=== PATIENT | male | born 1965 | race Caucasian/White ===

== ENCOUNTER 2023-06-04 06:17 | Day surgery (SDC) | payer OTHER, SELFPAY ==
[2023-06-04] VITALS (10 sets, daily range): BP systolic 99–140; BP diastolic 85–100; BMI 27.7
[2023-06-04] MEDS: CELEBREX 200 MG PO (08:40)
[2023-06-04] MEDS: TYLENOL 1000 MG PO (08:40)
[2023-06-04] MEDS: NORMOSOL-R 1000 IV (08:40)
== END 2023-06-04 12:00 | disposition home or self-care (01) ==
LOC: SDS 06:17
PROVIDERS: ATTENDING PHYSICIAN Specialist
DX: M75.112 Incomplete rotator cuff tear or rupture of left shoulder, not specified as traumatic (principal); M75.42 Impingement syndrome of left shoulder
CPT/HCPCS: 29827; 29823

== ENCOUNTER 2023-09-10 00:58 | Emergency (ER) | payer OTHER, SELFPAY ==
[2023-09-10 00:59] VITALS: BMI 28.3
[2023-09-10 01:14] VITALS: BP 125/87
[2023-09-10 01:47] VITALS: BP 133/93
[2023-09-10] MEDS: ZOFRAN 4 MG IV (01:48)
[2023-09-10] MEDS: PEPCID 20 MG IV (01:48)
[2023-09-10] MEDS: NSS 1000 IV (01:48)
[2023-09-10 01:51] LABS: % Basophils 0.2 % (0-2); % Eosinophils 2.4 % (0-6); % Immature Granulocytes 0.2 % (0-0.5); % Lymphocytes 2.9 % (20.5-51.1); % Monocytes 5.3 % (1.7-9.3); Absolute Eosinophils 0.2 10^3/uL (0-0.7); Absolute Lymphocytes 0.3 10^3/uL (1.2-3.4); Absolute Monocytes 0.5 10^3/uL (0.1-0.6); Hematocrit 43.3 % (39.0-52.0); Hemoglobin 14.2 g/dL (13.0-18.0); Mean Corp Hgb Conc. 32.8 g/dL (33.0-37.0); Mean Corpuscular Hgb 26.2 pg (27.0-31.0); Mean Platelet Volume 10.2 fL (7.4-10.4); Nucleated Red Blood Cells % 0 % (-); Platelet Count 210 10^3/uL (130-400); Red Blood Cell Count 5.41 10^6/uL (4.70-6.10); Red Cell Dist. Width 15.9 % (11.5-14.5); White Blood Cell Count 10.1 10^3/uL (4.8-10.8)
--- NOTE | 2023-09-10 01:51 | ED.GENMED ---
History of Present Illness
General
Chief Complaint: Abdominal Symptoms
Source: patient
Exam Limitations: none
Time Seen by Provider: 09/10/23 01:20
Nursing documentation reviewed up to this point in time: agreed with
Travel History
Have you had any contact with someone who has COVID-19?: No
Do you have any symptoms of coronavirus? Fever > 100 degrees, chills, cough, shortness of breath, sore throat, loss of taste or smell, muscle aches, or headache?: No
History of Present Illness
History of Present Illness:
57-year-old male past medical history of anxiety depression presenting to the emergency department today with concerns of nausea vomiting over the past few hours. Had a bowel movement which was somewhat loose but denies specific diarrhea. Denies
any chest pain shortness of breath.
Past History
Past History
ED Past Medical History: None
ED Past Surgical History: Orthopedic (Shoulder, Knee)
Social History
Tobacco: Non-smoker
Alcohol: Daily
Drug: None
Employment: Employed
Review of Systems
Review of Systems
Allergies reviewed?: Yes
All Other Systems: ROS reviewed and negative except as documented in HPI and ROS
Phy Exam
Physical Exam
Physical Exam:
GENERAL: Alert , in no apparent distress
EYE: pupils equal and reactive
NECK: Supple, no significant adenopathy.
ENT: o/p clr, mmm.
CARDIAC: Regular rate and rhythm .
LUNGS: Clear breath sounds bilaterally, no acute respiratory distress, no wheezes/rales/rhonchi
ABDOMEN: Soft, without focal tenderness, no r/g, no cvat
NEUROLOGICAL: Alert and oriented, no focal neuro deficits
SKIN: Warm and dry, skin intact.
MUSCULOSKELETAL: No edema, well perfused.
PSYCH: Normal and appropriate interaction.
Course
Orders/Labs/Results
Orders:
Orders
09/10/23 01:26
Electrocardiogram (*1) Stat
Reason for Study: Abdominal Pain
EKG- Treatment ONCE
Urinalysis Reflex To Culture Urgent
0.9% Sodium Chloride 1000 ml [Nss] 1,000 ml IV BOLUS
Famotidine [Pepcid] 20 mg IV NOW STA
Ondansetron Injectable [Zofran] 4 mg IV NOW STA
09/10/23 01:40
Complete Blood Count/With Diff Urgent
Comprehensive Metabolic Panel Urgent
Lipase Urgent
Abnormal Lab Results
09/10/23
01:40
MCH 26.2 L pg
(27.0-31.0)
MCHC 32.8 L g/dL
(33.0-37.0)
RDW 15.9 H %
(11.5-14.5)
Absolute Neuts (auto) 9.0 H 10^3/uL
(1.4-6.5)
Absolute Lymphs (auto) 0.3 L 10^3/uL
(1.2-3.4)
Neutrophils % 89.0 H %
(42.2-75.2)
Lymphocytes % 2.9 L %
(20.5-51.1)
Chloride 108 H mmol/L
(98-107)
Glucose 134 H mg/dl
(70-99)
09/10/23 01:40
09/10/23 01:40
Vital Signs
Initial and Last Documented VS:
Initial Vital Signs
Temp Pulse Resp BP Pulse Ox
98.1 F 87 20 125/87 100
09/10/23 01:14 09/10/23 01:14 09/10/23 01:14 09/10/23 01:14 09/10/23 01:14
Last Documented Vital Signs
Temp Pulse Resp BP Pulse Ox
98.1 F 87 20 130/85 96
09/10/23 01:14 09/10/23 01:14 09/10/23 01:14 09/10/23 02:00 09/10/23 01:59
MDM/Problems Addressed
MDM/Problems Addressed:
57-year-old male presenting to the emergency department today with concerns of nausea and vomiting of the past few hours denies abdominal pain denies fevers denies chest pain or shortness of breath denies some loose and bowel movements as well. On
arrival vital signs are normal patient with no abdominal pain to palpation.
*Critical Care Note
Total Time (30-74mins, 75-104mins- exclusive of procedures): Not Applicable
ED Attending Note
-
Portions of this chart may have been created with voice recognition software.� Occasional wrong word or��sound alike� substitutions may have occurred due to the inherent limitations of voice recognition software.
Discharge Plan
Departure
Patient Disposition: Home (Routine Discharge)
Date of Disposition: 09/10/23
Time of Disposition: 02:44
Patient with high blood pressure during this ER visit?: No
Condition: Good
Covid-19: Not Applicable
Discharge Problem:
Vomiting
Instructions: Nausea and Vomiting, Adult (DC)
Prescriptions:
New
ondansetron 4 mg tablet,disintegrating
4 mg PO Q8H PRN (Reason: nausea and vomiting) Qty: 7 0RF
No Action
pantoprazole 40 mg Tablet,Delayed Release (Dr/Ec)
40 mg PO DAILY
zolpidem [Ambien] 5 mg Tablet
5 mg PO HS
escitalopram oxalate [Lexapro] 10 mg Tablet
10 mg PO DAILY
bupropion HCl [Wellbutrin XL] 150 mg Tablet Extended Release 24 Hr
150 mg PO DAILY
Referrals:
Ramona Willett DO [Family Provider] -
Activity Restrictions/Additional Instructions:
You came to the emergency department today with concerns of nausea and vomiting. Here you had a reassuring assessment. Please take the Zofran 1 tab every 8 hours as needed for ongoing nausea and try to stay hydrated. Return to the emergency
department for any worsening, new or concerning symptoms.
Interventions
Interventions:
*Risk Screen - Suicide Last Done: 09/10/23 01:14
*General Assessment Last Done: 09/10/23 01:14
*Neglect/Abuse Screening Last Done: 09/10/23 01:14
Discharge Date and Time
Print Language: SERBIAN
[2023-09-10 02:00] VITALS: BP 130/85
[2023-09-10 02:27] LABS: ALT (SGPT) 13 U/L (0-50); AST (SGOT) 22 U/L (17-59); Albumin 4.5 g/dl (3.5-5.0); Alkaline Phosphatase 80 U/L (38-126); Blood Urea Nitrogen 17 mg/dl (9-20); Calcium 9.3 mg/dl (8.4-10.2); Carbon Dioxide 24 mmol/L (22-30); Chloride 108 mmol/L (98-107); Estimated Creatinine Clearance 86 ml/min; Glucose 134 mg/dl (70-99); Lipase 76 U/L (23-300); Potassium 4.9 mmol/L (3.5-5.1); Sodium 141 mmol/L (135-145); Total Protein 6.7 g/dl (6.3-8.2); eGFR > 60.00
== END 2023-09-10 03:05 | disposition home or self-care (01) ==
LOC: EMR 00:58
PROVIDERS: Physician Assistant; EMERGENCY PHYSICIAN Student in an Organized Health Care Education/Training Program; FAMILY PHYSICIAN Family Medicine
DX: R11.2 Nausea with vomiting, unspecified (principal)
CPT/HCPCS: 99283; 96374; 96375; 96361; 80053; 83690; 85025; 93005